=== PATIENT | male | born 1975 ===

== ENCOUNTER 2021-05-19 15:31 | Emergency (ER) | payer BC, OTHER ==
[~2021-05-19] VITALS: Ht 172.7 cm; Wt 95.3 kg
[2021-05-19 15:42] VITALS: BP 153/93
== END 2021-05-19 19:15 | disposition left against medical advice (07) ==
LOC: ER 15:31
DX: R20.0 Anesthesia of skin (principal); R51.9 Headache, unspecified; Z53.21 Procedure and treatment not carried out due to patient leaving prior to being seen by health care provider
CPT/HCPCS: 70450